=== PATIENT | male | born 1980 | race Two or more races ===

== ENCOUNTER 2016-07-20 05:25 | Emergency (ER) | payer BC ==
[~2016-07-20 05:25] MED LIST: AZITHROMYCIN PO; LEXAPRO PO; MOTRIN600 M1 PO; PRINIVIL10 MG PO; SUDAFED PO; TESSALON PERLES PO; XANAX0.5 M1 PO; ZOFRAN ODT4 MG SL
== END 2016-07-20 06:05 | disposition home or self-care (01) ==
LOC: SED 05:25
DX: H66.91 Otitis media, unspecified, right ear (principal); J02.9 Acute pharyngitis, unspecified; F32.9 Major depressive disorder, single episode, unspecified; I10 Essential (primary) hypertension; Z79.899 Other long term (current) drug therapy
CPT/HCPCS: 99282

== ENCOUNTER 2016-07-25 12:46 | Emergency (ER) | payer BC | END 2016-07-25 13:28 | disposition home or self-care (01) | LOC: SED 12:46 | DX: H66.91 Otitis media, unspecified, right ear (principal); H60.551 Acute reactive otitis externa, right ear; Z88.0 Allergy status to penicillin; Z79.899 Other long term (current) drug therapy | CPT/HCPCS: 99282 ==